=== PATIENT | female | born 1980 ===

== ENCOUNTER 2021-04-01 20:06 | Emergency (ER) | payer OTHER ==
[~2021-04-01] VITALS: Ht 165.1 cm; Wt 72.6 kg
[2021-04-01 20:18] VITALS: BP 122/78
[2021-04-01] MEDS ORDERED: IBUPROFEN 800 MG TAB PO ONE (21:15)
[2021-04-01] MEDS ORDERED: TETANUS-DIPTH-ACEL PERTUSSIS 0.5ML SYR Tdap IM ONE (21:15)
[2021-04-01] MEDS ORDERED: cefTRIAXone SOD 1,000 MG VL IM ONE (21:15)
[2021-04-01] MEDS ORDERED: cefTRIAXone 1GM/50ML D5W 50 ML IV ONE ×2 (21:50→22:45)
== END 2021-04-01 23:18 | disposition home or self-care (01) ==
LOC: EDBD 20:06 → ER 20:06
DX: S61.451A Open bite of right hand, initial encounter (principal); W54.0XXA Bitten by dog, initial encounter; Y93.89 Activity, other specified; Y92.89 Other specified places as the place of occurrence of the external cause; Y99.8 Other external cause status
CPT/HCPCS: 73130; 81025; 90471; 90715; 96365; 99284; J0696